=== PATIENT | female | born 1940 | race Caucasian/White ===

== ENCOUNTER → 2016-11-25 | Outpatient (CLI) | payer MEDICARE ==
[~2016-11-25] MED LIST: AMLO5TAB2 PO; GABA300C5 PO; LEVO50TA4 PO
--- NOTE | 2016-11-25 11:00 | RADRPT ---
EXAM DATE/TIME: 11/25/2016 00:00 [place] COMPARISON: No previous studies available for comparison. INDICATIONS : Dysphagia, paralysis of vocal chords. FLUORO TIME: 2.0 minutes IMAGE COUNT: 0 CONTRAST: Dose as prescribed by speech pathologist. MEDICAL HISTORY : paralysis of vocal chords SURGICAL HISTORY : None. ENCOUNTER: Initial ACUITY: 1 month PAIN SCORE: 0/10 LOCATION: Bilateral upper throat FINDINGS: A modified barium swallow was performed with speech pathology. Patient was given a variety of liquids to swallow. No aspiration occurred. For a full detailed report, see report by the speech pathologist. CONCLUSION: Please see speech pathology report for full details. Randy Reynolds MD on November 25, 2016 at 10:58 Board Certified Radiologist. This report was verified electronically.
== END ==
LOC: HRAD 10:12
DX: R49.0 Dysphonia (principal); J38.01 Paralysis of vocal cords and larynx, unilateral; R13.10 Dysphagia, unspecified
CPT/HCPCS: 74230; 92611; G8996; G8997; G8998